=== PATIENT | male | born 1970 | race Two or more races ===

== ENCOUNTER 2024-08-01 12:23 | Inpatient (IN) | payer OTHER ==
[2024-08-01 12:46] VITALS: BMI 21.9
[2024-08-01] MEDS ORDERED: NALOXONE (NARCAN) HCL 4 MG/0.1 ML SPRAY NS PRN (14:30)
[2024-08-01] MEDS ORDERED: MAGNESIUM HYDROX 2400MG/30ML ORAL SUSPENSION 30 ML CUP PO PRN (14:30)
[2024-08-01] MEDS ORDERED: LOPERAMIDE HCL 2 MG CAPSULE PO PRN (14:30)
[2024-08-01] MEDS ORDERED: guaiFENesin 600 MG TABLET.ER (FP) PO PRN (14:30)
[2024-08-01] MEDS ORDERED: NICOTINE POLACRILEX 2 MG GUM BUC PRN (14:30)
[2024-08-01] MEDS ORDERED: MAG HYDROX/AL HYDROX/SIMETH 30 ML UNIT-DOSE CUP PO PRN (14:30)
[2024-08-01] MEDS ORDERED: BENZONATATE 200 MG CAPSULE PO PRN (14:30)
[2024-08-01] MEDS ORDERED: P-EPHED 60MG/TRIPROLIDI 2.5MG TABLET PO PRN (14:30)
[2024-08-01] MEDS ORDERED: POLYETHYLENE GLYCOL (HEALTHYLAX) 3350 17 GM PACKET PO PRN (14:30)
[2024-08-01] MEDS ORDERED: DOCUSATE SODIUM 100 MG CAPSULE (FP) PO PRN (14:30)
[2024-08-01] MEDS ORDERED: NICOTINE POLACRILEX 2 MG LOZENGE BC PRN (14:30)
[2024-08-01] MEDS: MELATONIN 5 MG TABLETS PO SCH (21:20)
[2024-08-01] MEDS: THIAMINE 100 MG TABLET PO SCH (21:20)
[2024-08-01] MEDS: CEPHALEXIN MONOHYDRATE 500 MG CAPSULE (UD) PO SCH (21:20)
[2024-08-01] MEDS ORDERED: CEPHALEXIN MONOHYDRATE 250 MG CAPSULE (FP) PO SCH (22:00)
[2024-08-02 01:15] LABS: URINE APPEARANCE CLEAR; URINE BILIRUBIN NEGATIVE (NEGATIVE); URINE COLOR YELLOW; URINE GLUCOSE (UA) NEGATIVE (NEGATIVE); URINE KETONE NEGATIVE (NEGATIVE); URINE LEUK ESTERASE NEGATIVE (NEGATIVE); URINE NITRITE NEGATIVE (NEGATIVE); URINE PROTEIN NEGATIVE (NEGATIVE)
[2024-08-02] MEDS ORDERED: methaDONE HCL 10 MG TABLET PO SCH (08:51)
[2024-08-02] MEDS: PRENATAL VITAMINS W/ FOLIC ACID TABLET (FP) PO SCH (09:48)
[2024-08-02] MEDS: methaDONE 40 MG, methaDONE 20 MG PO SCH (09:48)
[2024-08-03] MEDS: IBUPROFEN 600 MG TABLET (FP) PO PRN (21:36)
[2024-08-04] MEDS: ACETAMINOPHEN 325 MG TABLET (FP) PO PRN (21:25)
[2024-08-05] MEDS: hydrOXYzine PAMOATE 25 MG CAPSULE (FP) PO PRN (21:27)
[2024-08-08] MEDS: IBUPROFEN 400 MG TABLET (FP) PO PRN (09:54)
[2024-08-09 12:54] LABS: BASO % 0.5 % (0-2.0); EOS % 10.9 % (0-4.5); HEMATOCRIT 34.3 % (35.4-49); HEMOGLOBIN 11.4 GM/dL (11.7-16.9); LYMPH % 29.6 % (8-40); MCH 29.7 pg (25.7-33.7); MCHC 33.3 g/dl (32.0-35.9); MEAN CELL VOLUME 89.1 fl (80-96); MONO % 8.3 % (3.8-10.2); NEUT % 50.7 % (42.8-82.8); PLATELET COUNT 331 10^3/uL (134-434); RBC 3.85 M/mm3 (4.00-5.60); RDW 14.8 % (11.9-15.9); WHITE BLOOD COUNT 5.3 K/mm3 (4.0-10.0)
[2024-08-09 13:16] LABS: POTASSIUM 4.8 mmol/L (3.5-5.1)
[2024-08-09 13:30] LABS: CALCIUM 9.3 mg/dL (8.5-10.1)
[2024-08-09 13:31] LABS: ALBUMIN 3.7 g/dl (3.4-5.0); BLOOD UREA NITROGEN 22.3 mg/dL (7-18); MAGNESIUM 1.8 mg/dL (1.8-2.4)
[2024-08-09 13:34] LABS: CREATININE 0.7 mg/dL (0.55-1.3)
[2024-08-09 13:35] LABS: BILIRUBIN,TOTAL 0.2 mg/dL (0.2-1)
[2024-08-09 13:36] LABS: TOT PROT 8.1 g/dl (6.4-8.2)
[2024-08-13] MEDS: BENZOCAINE/MENTHOL (CHLORASEPTIC ) LOZENGE MM PRN (13:52)
[2024-08-15] MEDS ORDERED: methaDONE HCL 40 MG DISPERSABLE TABLET PO SCH (13:21)
[2024-08-16] MEDS: methaDONE 40 MG, methaDONE 10 MG PO SCH (05:33)
[2024-08-16] MEDS: BENZOCAINE 20 % GEL TUBE MM PRN (09:59)
[2024-08-21] MEDS: methaDONE HCL 40 MG DISPERSABLE TABLET PO SCH (05:55)
[2024-08-26] MEDS: amLODIPine BESYLATE 5 MG TABLET (FP) PO SCH (11:39)
[2024-08-28 06:40] VITALS: BP 144/88; PULSE 78; RESP 17; TEMP 96.8
[2024-08-28] MEDS ORDERED: NALOXONE (NYS OPIOID OVERDOSE PROGRAM) 4 MG/0.1 ML SPRAY NS SCH (09:00)
[2024-08-28] MEDS: NALOXONE (NYS OPIOID OVERDOSE PROGRAM) 4 MG/0.1 ML SPRAY NS PRN (09:04)
== END 2024-08-28 09:35 | disposition home or self-care (01) | DRG 772 ==
LOC: YASAS 12:23 → Y3W 17:51
PROVIDERS: ADMIT Psychiatry & Neurology Pain Medicine; ATTEND Psychiatry & Neurology Pain Medicine
PROC: HZ42ZZZ Group Counseling for Substance Abuse Treatment, Cognitive-Behavioral (ICD-10-PCS; principal; 2024-08-01)
DX: F11.20 Opioid dependence, uncomplicated (principal); F14.20 Cocaine dependence, uncomplicated; F12.20 Cannabis dependence, uncomplicated; F17.210 Nicotine dependence, cigarettes, uncomplicated; I10 Essential (primary) hypertension; L03.113 Cellulitis of right upper limb; B95.61 Methicillin susceptible Staphylococcus aureus infection as the cause of diseases classified elsewhere; K08.89 Other specified disorders of teeth and supporting structures; Z59.01 Sheltered homelessness
CPT/HCPCS: 36415; 80053; 80305; 80307; 81003; 82652; 83735; 85025; 85027; 86780; 87070; 87186; 87205; 87811